=== PATIENT | female | born 2005 ===

== ENCOUNTER 2024-12-20 20:17 | Outpatient (REF) | payer OTHER, SELFPAY ==
[2024-12-24 11:10] LABS: Age Gdln ACOG Testing Note (.); IGP, rfx Aptima HPV ASCU Note (.)
== END 2024-12-20 20:18 | disposition home or self-care (01) ==
LOC: LAB 20:17
PROVIDERS: Visit Provider Nurse Practitioner Family
DX: Z01.419 Encounter for gynecological examination (general) (routine) without abnormal findings (principal)
CPT/HCPCS: 88175